=== PATIENT | female | born 1960 | race Caucasian/White ===

== ENCOUNTER → 2019-07-02 12:29 | Outpatient (CLI) | payer BC, SELFPAY ==
--- NOTE | ~2019-07-02 | MMUS_ITS ---
EXAMINATION: MM diagnostic [facility] w [facility], US breast LT limited HISTORY: Left axillary lump TECHNIQUE: Bilateral ML, MLO and craniocaudal and additional left coned compression 3-D tomosynthesis images were performed and synthetic 2-D images were generated. Rolled medial craniocaudal and rolled lateral craniocaudal views of left breast. CAD analysis was submitted and interpreted. High resoluti on upper outer quadrant left breast and left axillary ultrasound was performed. COMPARISON: 06/17/2018, 06/02/2017, 05/27/2016 bilateral digital screening mammogram examinations BREAST PARENCHYMAL COMPOSITION: There are scattered areas of fibroglandular density. FINDINGS: MAMMOGRAPHIC FINDINGS: No suspicious mass or architectural distortion, malignant calcification, skin thickening or retractio n or significant new or developing density is detected. ULTRASOUND: There is no evidence of focal abnormal solid or cystic lesion in the upper outer quadrant of the left breast or left axilla IMPRESSION: 1. No mammographic evidence of malignancy 2. Routine mammographic screening is recommended. BI-RADS Category 1: Negative Reviewed, dictated and finalized at location A. IMPRESSION: 1. No mammographic evidence of malignancy 2. Routine mammographic screening is recommended. BI-RADS Category 1: Negative
== END ==
PROVIDERS: Visit Provider Family Medicine
DX: N63.20 Unspecified lump in the left breast, unspecified quadrant (principal)
CPT/HCPCS: 76642; 77062; 77066; G0279

== ENCOUNTER → 2020-06-05 17:37 | Outpatient (CLI) | payer BC, SELFPAY ==
--- NOTE | ~2020-06-05 | XR_ITS ---
EXAMINATION: XR facial bones min 3V INDICATION: Head injury TECHNIQUE: Four views of the facial bones are obtained. COMPARISON: None available FINDINGS: No fracture is identified. The paranasal sinuses are well pneumatized. The soft tissues are unremarkable. There is mild spondylosis of the visualized cervical spine. IMPRESSION: 1. No facial bone fracture identified although sensitivity of radiographs is low. If there is high cl inical suspicion for facial fracture, CT of the facial bones is recommended. Reviewed, dictated and finalized at location A. UCT SUPPORT REP IMPRESSION: 1. No facial bone fracture identified although sensitivity of radiographs is lo w. If there is high clinical suspicion for facial fracture, CT of the facial melia prasanth is recommended.
== END ==
PROVIDERS: Visit Provider Physician Assistant Medical
DX: S09.90XA Unspecified injury of head, initial encounter (principal)
CPT/HCPCS: 70150

== ENCOUNTER → 2020-06-07 15:11 | Outpatient (CLI) | payer BC, SELFPAY ==
--- NOTE | ~2020-06-07 | CT_ITS ---
EXAMINATION: CT facial bones wo con DATE: 06/07/2020 15:29 INDICATION: Facial pain and bruising, hit in the forehead with a baseball TECHNIQUE: Computed tomography (CT) of the facial bones and maxillofacial region was performed withou t intravenous contrast. The dose-length product (DLP) was 262.67 mGy-cm. Automated exposure control a nd iterative reconstruction technique were employed. COMPARISON: None. FINDINGS: No facial bone fracture is identified. The nasal bones are intact. The orbits are normal. T he nasal septum is midline. The bilateral ostiomeatal complexes are normal. There are polyps or mucou s retention cysts in the left maxillary sinus which measure 10 mm and 7 mm. The globes are intact. Th ere is minimal midline soft tissue swelling of the frontal scalp. Mild spondylosis is noted of the vi sualized cervical spine. IMPRESSION: 1. Minimal midline soft tissue swelling of the frontal scalp without facial bone fracture identified. 2. Mild sinus disease. Reviewed, dictated and finalized at location A. OUT MARKER IMPRESSION: 1. Minimal midline soft tissue swelling of the frontal scalp without facial bon e fracture identified. 2. Mild sinus disease.
== END ==
PROVIDERS: PCP Family Medicine; Visit Provider Physician Assistant Medical
DX: R51.9 Headache, unspecified (principal); S09.90XA Unspecified injury of head, initial encounter; X58.XXXA Exposure to other specified factors, initial encounter; R93.0 Abnormal findings on diagnostic imaging of skull and head, not elsewhere classified
CPT/HCPCS: 70486

== ENCOUNTER → 2020-07-28 15:15 | Outpatient (CLI) | payer BC, SELFPAY ==
--- NOTE | ~2020-07-28 | MM_ITS ---
EXAMINATION: MM screening [facility] BI w rosa HISTORY: Screening mammogram TECHNIQUE: Craniocaudal and mediolateral oblique 3-D tomosynthesis images were obtained and synthetic 2-D images were generated. CAD analysis was submitted and interpreted. COMPARISON: 07/02/2019, 06/17/2018, 06/02/2017 BREAST PARENCHYMAL COMPOSITION: There are scattered areas of fibroglandular density. FINDINGS: There is no evidence of suspicious mass, calcification, or architectural distortion to sugg est malignancy in either breast. There has been no suspicious interval change. IMPRESSION: 1. No mammographic evidence of malignancy. 2. Recommend routine screening mammography in one year. BI-RADS Category 1: Negative Reviewed, dictated and finalized at location A.
== END ==
PROVIDERS: PCP Family Medicine; Visit Provider Obstetrics & Gynecology
DX: Z12.31 Encounter for screening mammogram for malignant neoplasm of breast (principal)
CPT/HCPCS: 77063; 77067

== ENCOUNTER 2021-11-28 11:08 | Outpatient (CLI) | payer BC, SELFPAY ==
--- NOTE | ~2021-11-28 | XR_ITS ---
EXAMINATION: XR foot LT min 3V DATE: 11/28/2021 11:26 INDICATION: Left foot injury. TECHNIQUE: 4 views of left foot were obtained. COMPARISON: None. FINDINGS: There are changes of bunionectomy. There is a comminuted fracture of fifth proximal phalanx with involvement of the proximal articular surface. The main distal fracture fragment demonstrates n ear-anatomic alignment. There is mild osteoarthritis of first metatarsophalangeal joint. There are en thesophytes at the posterior and plantar aspects of calcaneal tuberosity. IMPRESSION: 1. Comminuted fracture of fifth proximal phalanx. Reviewed, dictated and finalized at location A.
== END 2021-11-28 11:09 | disposition home or self-care (01) ==
PROVIDERS: PCP Family Medicine; Visit Provider Nurse Practitioner Family
DX: S92.512A Displaced fracture of proximal phalanx of left lesser toe(s), initial encounter for closed fracture (principal); X58.XXXA Exposure to other specified factors, initial encounter
CPT/HCPCS: 73630

== ENCOUNTER → 2021-12-04 13:15 | Outpatient (CLI) | payer BC, SELFPAY ==
--- NOTE | ~2021-12-04 | MM_ITS ---
EXAMINATION: MM screening [facility] BI w [facility] HISTORY: Screening mammogram TECHNIQUE: Craniocaudal and mediolateral oblique 3-D tomosynthesis images were obtained and synthetic 2-D images were generated. CAD analysis was submitted and interpreted. COMPARISON: 07/28/2020, 07/02/2019, 06/17/2018 BREAST PARENCHYMAL COMPOSITION: The breasts are heterogeneously dense, which may obscure small masses . FINDINGS: There is no suspicious mass, calcification, or architectural distortion to suggest malignan cy in either breast. There has been no suspicious interval change. IMPRESSION: 1. No mammographic evidence of malignancy. 2. Recommend routine screening mammography in one year. BI-RADS Category 1: Negative Reviewed, dictated and finalized at location A.
== END ==
PROVIDERS: PCP Family Medicine; Visit Provider Obstetrics & Gynecology
DX: Z12.31 Encounter for screening mammogram for malignant neoplasm of breast (principal)
CPT/HCPCS: 77063; 77067

== ENCOUNTER 2022-10-28 10:13 | Outpatient (CLI) | payer BC, SELFPAY ==
--- NOTE | ~2022-10-28 | XR_ITS ---
Lumbosacral Spine: AP oblique, and lateral views, with neutral, flexion, and extension positioning Clinical History: Pain Findings: There is 18 degrees levoscoliosis of the thoracolumbar spine. There is 5 mm retrolisthesis of L2 over L3. Anterolisthesis is reduced on flexion view as compared to neutral and extension views. There is moderate to advanced facet arthropathy throughout the lumbar spine. No fracture evident. Th ere is mild degenerative disc change throughout most of the lumbar spine. The sacroiliac joints are n ormally outlined. Impression: 5 mm retrolisthesis of L2 over L3, which is reduced on flexion view as compared to neutral and extens ion views. 18 degrees levoscoliosis with moderate degenerative change otherwise, as detailed above. Reviewed, dictated and finalized at [facility]. Impression: 5 mm retrolisthesis of L2 over L3, which is reduced on flexion view as compared to neutral and extension views. 18 degrees levoscoliosis with moderate degenerative change otherwise, as detail ed above.
== END 2022-10-28 10:14 | disposition home or self-care (01) ==
LOC: ANHIMG 10:15
PROVIDERS: PCP Family Medicine; Visit Provider Nurse Practitioner Family
DX: M54.9 Dorsalgia, unspecified (principal); M51.36 Other intervertebral disc degeneration, lumbar region
CPT/HCPCS: 72114

== ENCOUNTER → 2022-12-05 07:22 | Outpatient (CLI) | payer BC, SELFPAY ==
--- NOTE | ~2022-12-05 | MM_ITS ---
EXAMINATION: MM screening [facility] BI w [facility] HISTORY: Screening mammogram TECHNIQUE: Craniocaudal and mediolateral oblique 3-D tomosynthesis images were obtained and synthetic 2-D images were generated. CAD analysis was submitted and interpreted. COMPARISON: 12/04/2021, 07/28/2020, 07/02/2019, 06/17/2018 BREAST PARENCHYMAL COMPOSITION: There are scattered areas of fibroglandular density. FINDINGS: No suspicious mass, calcification, or architectural distortion are identified in either nancie ast to suggest malignancy. There has been no suspicious interval change. IMPRESSION: 1. No mammographic evidence of malignancy. 2. Recommend routine screening mammography in one year. BI-RADS Category 1: Negative Reviewed, dictated and finalized at location L.
== END ==
PROVIDERS: PCP Family Medicine; Visit Provider Obstetrics & Gynecology
DX: Z12.31 Encounter for screening mammogram for malignant neoplasm of breast (principal)
CPT/HCPCS: 77063; 77067

== ENCOUNTER → 2022-12-19 16:14 | Outpatient (CLI) | payer BC, SELFPAY ==
--- NOTE | ~2022-12-19 | XR_ITS ---
EXAMINATION: XR ribs BI 3V w CXR 2V INDICATION: Pleurodynia TECHNIQUE: PA and lateral views of the chest and 3 views of the bilateral ribs were obtained. COMPARISON: 04/09/2019 FINDINGS: The lungs are free of acute opacities. No pleural effusion or pneumothorax. The cardiomedia stinal silhouette is normal. There is mild thoracic spondylosis. No displaced rib fracture is identif ied. IMPRESSION: 1. No acute cardiopulmonary abnormality or evidence of displaced rib fracture. Reviewed, dictated and finalized at location F.
== END ==
PROVIDERS: PCP Family Medicine; Visit Provider Nurse Practitioner Family
DX: R07.81 Pleurodynia (principal)
CPT/HCPCS: 71046; 71110

== ENCOUNTER 2023-12-09 13:19 | Outpatient (CLI) | payer BC, SELFPAY ==
--- NOTE | ~2023-12-09 | MM_ITS ---
EXAMINATION: MM screening [facility] w [facility] HISTORY: Screening TECHNIQUE: Craniocaudal and mediolateral oblique 3-D tomosynthesis images were obtained and synthetic 2-D images were generated. CAD analysis was submitted and interpreted. COMPARISON: Comparison to multiple prior studies sequentially, with oldest reviewed study dated 06/02. BREAST PARENCHYMAL COMPOSITION: Not dense: There are scattered areas of fibroglandular density. FINDINGS: There is no evidence of suspicious mass, calcification, or architectural distortion to sugg est malignancy in either breast. There has been no suspicious interval change. IMPRESSION: 1. No mammographic evidence of malignancy. 2. Recommend routine screening mammography in one year. BI-RADS Category 1: Negative Reviewed, dictated and finalized at location B.
== END 2023-12-09 13:20 | disposition home or self-care (01) ==
PROVIDERS: PCP Family Medicine; Visit Provider Obstetrics & Gynecology
DX: Z12.31 Encounter for screening mammogram for malignant neoplasm of breast (principal)
CPT/HCPCS: 77063; 77067

== ENCOUNTER 2025-02-23 15:20 | Outpatient (CLI) | payer BC, SELFPAY ==
--- NOTE | ~2025-02-23 | MM_ITS ---
EXAMINATION: MM screening [facility] w [facility] HISTORY: Screening TECHNIQUE: Craniocaudal and mediolateral oblique 3-D tomosynthesis images were obtained and synthetic 2-D images were generated. CAD analysis was submitted and interpreted. COMPARISON: Comparison to multiple prior studies sequentially, with oldest reviewed study dated , 06/17/2018 BREAST PARENCHYMAL COMPOSITION: Not Dense: There are scattered areas of fibroglandular density. FINDINGS: There is no evidence of suspicious mass, calcification, or architectural distortion to suggest malignancy in either breast. IMPRESSION: 1. No mammographic evidence of malignancy. 2. Recommend routine screening mammography in one year. BI-RADS Category 1: Negative Reviewed, dictated and finalized at location B. W[facility]ER
== END 2025-02-23 15:21 | disposition home or self-care (01) ==
LOC: MICIMG 15:21
PROVIDERS: PCP Family Medicine; Visit Provider Obstetrics & Gynecology
DX: Z12.31 Encounter for screening mammogram for malignant neoplasm of breast (principal)
CPT/HCPCS: 77063; 77067